=== PATIENT | male | born 1940 | race Caucasian/White ===

== ENCOUNTER 2018-08-28 20:53 | Emergency (ER) | payer MEDICARE ==
[2018-08-28 21:33] LABS: #Basophils 0.1 thou/uL (0.0-0.2); #Eosinphils 0.1 thou/uL (0.0-0.7); #Lymphocytes 0.9 thou/uL (1.20-3.40); #Monocytes 0.5 thou/uL (0.11-0.59); #Neutrophils 6.7 thou/uL (1.40-6.50); %Basophils 0.8 % (0.0-1.0); %Eosinophils 0.7 % (0.0-10.0); %Lymphocytes 10.9 % (21.0-51.0); %Monocytes 5.6 % (0.0-10.0); %Neutrophils 81.9 % (42.0-75.0); Hemoglobin 10.5 g/dL (14.0-18.0); Mean Corpuscular HGB CONC 32.5 g/dL (32.0-36.0); Mean Corpuscular Hemoglobin 29.8 pg (27.0-31.0); Mean Corpuscular Volume 91.8 fL (78.0-98.0); Mean Platelet Volume 7.5 fL (7.4-10.4); Platelet Count 139 thou/uL (130-400); RBC Distribution Width 18.1 % (11.5-14.5); White Blood Cell (WBC) Count 8.2 thou/uL (4.8-10.8)
--- NOTE | 2018-08-28 21:47 | RAD ---
Exam: Chest one view: HISTORY: Fever FINDINGS: Cardiomegaly. Postop midline sternotomy. Bilateral vascular congestion with increased markings bilate rally. Old granulomatous disease. No confluent pneumonia, overt edema or pleural effusion. IMPRESSION: Cardiomegaly with increased markings bilaterally and mild vascular congestion. Old granulomatous dise ase. Atherosclerosis of the aorta. No confluent pneumonia.
[2018-08-28 21:49] LABS: ALT (SGPT) 12 U/L (8-55); AST (SGOT) 17 U/L (5-34); Alkaline Phosphatase 108 U/L (40-150); Anion Gap 19 mmol/L (10-20); BUN (Urea Nitrogen) 21 mg/dL (8.4-25.7); Bilirubin, Total 0.7 mg/dL (0.2-1.2); Calc. Creatinine Clearance 0 mL/min (70-130); Calcium 9.4 mg/dL (7.8-10.44); Carbon Dioxide 33 mmol/L (23-31); Chloride 93 mmol/L (98-107); Estimated GFR-MDRD 16; Globulin 3.9 g/dL (2.4-3.5); Glucose 127 mg/dL (83-110); Potassium 4.5 mmol/L (3.5-5.1); Protein, Total 7.9 g/dL (5.8-8.1); Sodium 140 mmol/L (136-145)
[2018-08-28] MEDS ORDERED: Acetaminophen 325 MG TAB ONE (22:04)
[2018-08-28] MEDS ORDERED: Cefepime 2 GM VIAL ONE (22:04)
[2018-08-28] MEDS ORDERED: Sodium Chloride 0.9% 100 ML ONE (22:04)
[2018-08-28] MEDS ORDERED: Sodium Chloride 0.9% 250 ML 250 ML ONE (22:05)
== END 2018-08-28 23:07 | disposition short-term general hospital (02) ==
LOC: MADERS 20:53
DX: E11.621 Type 2 diabetes mellitus with foot ulcer (principal); L97.519 Non-pressure chronic ulcer of other part of right foot with unspecified severity; L03.115 Cellulitis of right lower limb; R65.10 Systemic inflammatory response syndrome (SIRS) of non-infectious origin without acute organ dysfunction; I25.2 Old myocardial infarction; I12.0 Hypertensive chronic kidney disease with stage 5 chronic kidney disease or end stage renal disease; N18.6 End stage renal disease; I49.9 Cardiac arrhythmia, unspecified; I48.91 Unspecified atrial fibrillation; E11.40 Type 2 diabetes mellitus with diabetic neuropathy, unspecified; F32.9 Major depressive disorder, single episode, unspecified; Z79.01 Long term (current) use of anticoagulants; Z99.2 Dependence on renal dialysis; Z79.899 Other long term (current) drug therapy
CPT/HCPCS: 71045; 80053; 83605; 85025; 87040; 87804; 96361; 96365; 96375; J0692; J3370; J3490; J7050